=== PATIENT | female | born 2000 | race Two or more races ===

== ENCOUNTER → 2024-11-07 | Outpatient (CLI) | payer BC, SELFPAY ==
[2024-11-07 10:05] LABS: Urea Breath Test Negative (Negative)
== END | disposition home or self-care (01) ==
LOC: COPL 08:26
PROVIDERS: PCP Family Medicine; Referring Provider Nurse Practitioner Family; Visit Provider Nurse Practitioner Family
DX: R11.0 Nausea (principal)
CPT/HCPCS: 83013; 83014

== ENCOUNTER → 2024-11-23 | Outpatient (CLI) | payer BC, SELFPAY ==
[2024-11-22 11:40] LABS: HCG Qualitative,Urine Negative
--- NOTE | 2024-11-23 10:20 | XR_ITS ---
Examination: CT abdomen and pelvis without contrast. Coronal 3-D reconstructions. Sagittal 2-D reconstructions. Date and time of exam:November 23, 2024 1026 hours INDICATIONS: Intermittent epigastric pain 3 years CTDI: vol (mGy): 9.55 DLP: (mGycm): 540 Technique: Axial images of the abdomen have been obtained, 3 mm slice thickness Intravenous contrast material has not been administered. Low dose protocols were performed. One or more of the following dose reduction techniques were used; automated exposure control, adjustment of the mA and/or KV according to patient size, use of iterative reconstruction technique. Findings: No focal liver or splenic lesions No gallstones No pancreatic or adrenal mass No renal or ureteral calculi, no hydronephrosis No bowel obstruction Normal appendix No diverticulitis Abundant stool in the sigmoid colon and rectum Anteverted uterus No adnexal mass No bladder mass or bladder calculi Moderate disc narrowing L5-S1 IMPRESSION: No renal or ureteral calculi, no hydronephrosis Normal appendix Abundant stool in the sigmoid colon and rectum
== END | disposition home or self-care (01) ==
PROVIDERS: PCP Nurse Practitioner Family; Referring Provider Nurse Practitioner Family; Visit Provider Nurse Practitioner Family
DX: K59.00 Constipation, unspecified (principal); Z32.00 Encounter for pregnancy test, result unknown
CPT/HCPCS: 74176; 81025